=== PATIENT | female | born 1985 ===

== ENCOUNTER 2025-06-06 08:00 | Day surgery (SDC) | payer OTHER ==
[2025-05-31 12:12] VITALS: BP 129/80
[~2025-06-06] VITALS: Ht 170.2 cm; Wt 76.7 kg
[2025-06-06] MEDS ORDERED: POVIDONE-IODINE 118 ML BOTT TOP ONE (12:48)
[2025-06-06] MEDS ORDERED: KETOROLAC TROMETHAMINE 30 MG VIAL IV ONE (14:15)
[2025-06-06] MEDS ORDERED: ONDANSETRON HCL 2 MG/ML VIAL IV ONE (14:15)
[2025-06-06] MEDS ORDERED: KETOROLAC TROMETHAMINE 30 MG VIAL ONE (14:45)
== END 2025-06-06 15:50 | disposition home or self-care (01) ==
LOC: CIR.AMB 08:00
PROVIDERS: ATTEND Obstetrics & Gynecology
DX: N70.91 Salpingitis, unspecified (principal); N93.8 Other specified abnormal uterine and vaginal bleeding; R10.20 Pelvic and perineal pain unspecified side